=== PATIENT | female | born 1950 | race Caucasian/White ===

== ENCOUNTER → 2021-03-06 14:28 | Outpatient (BNVA) | payer MEDICARE, SELFPAY | PROVIDERS: PCP Internal Medicine; Visit Provider Hospitalist | DX: R06.00 Dyspnea, unspecified (principal); D86.9 Sarcoidosis, unspecified; R91.8 Other nonspecific abnormal finding of lung field; R59.1 Generalized enlarged lymph nodes; J44.9 Chronic obstructive pulmonary disease, unspecified; Z87.891 Personal history of nicotine dependence; Z88.1 Allergy status to other antibiotic agents; Z88.2 Allergy status to sulfonamides | CPT/HCPCS: 99202 ==

== ENCOUNTER 2021-03-19 13:01 | Outpatient (REF) | payer MEDICARE, SELFPAY ==
--- NOTE | ~2021-03-19 | CT_ITS ---
EXAMINATION: CT CHEST WITHOUT CONTRAST CLINICAL INFORMATION: Pulmonary nodule. COMPARISON: None TECHNIQUE: Multidetector volumetric CT imaging of the chest was done. Axial MIP volume rendering provided. Sagittal and coronal reformatted images were obtained. This CT examination was performed using dose optimization techniques as appropriate, variously including the following: *Automated exposure control *Adjustment of mA and/or kV according to patient size (this includes techniques or standardized protocols for targeted exams where dose is matched to indication/reason for exam; i.e. extremities or head) *Use of iterative reconstruction technique DLP: 191 mGy-cm FINDINGS: LUNGS: There is a 2 mm peripheral right upper lobe calcified nodule axial image 96 series 6. There are small clustered noncalcified peribronchial right upper lobe nodules suggestive of tree-in-bud appearance, the largest nodule measuring 2-3 mm, for example axial image 172 series 6. There are increased peripheral interstitial markings with increased reticulation. This has upper lobe predominance. There is question of increased faint peribronchial or centrilobular increased attenuation seen throughout the lungs, but greatest in the upper lobes. No evidence of honeycombing or cystic change is seen. No evidence of emphysema or bronchiectasis is seen. No endobronchial or endotracheal lesion is seen. MEDIASTINUM: There are small mediastinal lymph nodes. No enlarged lymph nodes are seen. The heart does not appear enlarged. There is mild coronary artery calcification. There is no pericardial effusion. PLEURA: There is no pleural effusion. No pleural mass or thickening. AXILLA: No lymphadenopathy. UPPER ABDOMEN: Unremarkable. OSSEOUS STRUCTURES: Unremarkable. CT/CT chest wo con IMPRESSION: Mild upper lobe interstitial disease with increased peribronchial or centrilobular attenuation. Differential would include hypersensitivity pneumonitis, inhalational pneumonitis, nonspecific interstitial pneumonitis, and respiratory bronchiolitis if the patient is a smoker. Small calcified right upper lobe nodule. Clustered small right upper lobe nodules suggestive of a tree-in-bud appearance or airways disease. Coronary artery calcification.
== END 2021-03-19 13:02 | disposition home or self-care (01) ==
LOC: HO.CT 13:01
PROVIDERS: PCP Internal Medicine; Visit Provider Hospitalist
DX: R91.8 Other nonspecific abnormal finding of lung field (principal); R59.1 Generalized enlarged lymph nodes; D86.9 Sarcoidosis, unspecified
CPT/HCPCS: 71250

== ENCOUNTER 2021-03-23 12:41 | Outpatient (REF) | payer MEDICARE, SELFPAY ==
--- NOTE | 2021-03-23 15:24 | PFT_ITS ---
FLOWS: FEV1 61% of predicted at 1.24 L. FVC 60% of predicted at 1.64 L. FEV1 to FVC ratio of 0.75. No bronchodilator response except in [id number] airways. LUNG VOLUMES: Total lung capacity 74% of predicted at 3.55 L. Residual volume 92% of predicted at 1.97 L. Slow vital capacity 60% of predicted at 1.59 L. Expiratory reserve volume 11% of predicted at 0.07 L. Diffusion capacity is moderately decreased, diffusion capacity just being mildly decreased after correction for alveolar ventilation. IMPRESSION: Moderate restrictive ventilatory defect with no bronchodilator response except in [id number] airways. Decreased expiratory reserve volume suggests extrathoracic restriction, likely secondary to abdominal obesity. Decreased diffusion capacity suggests emphysema. Jan Barajas MD AP/MODL / [id number]
== END 2021-03-23 12:42 | disposition home or self-care (01) ==
LOC: HO.RESP 12:41
PROVIDERS: PCP Internal Medicine; Visit Provider Hospitalist
DX: R91.8 Other nonspecific abnormal finding of lung field (principal); D86.9 Sarcoidosis, unspecified; R59.1 Generalized enlarged lymph nodes
CPT/HCPCS: 94060; 94727; 94729

== ENCOUNTER → 2021-04-13 13:07 | Outpatient (BNVA) | payer MEDICARE, SELFPAY | PROVIDERS: PCP Internal Medicine; Visit Provider Hospitalist | DX: R91.8 Other nonspecific abnormal finding of lung field (principal); J44.9 Chronic obstructive pulmonary disease, unspecified; R06.00 Dyspnea, unspecified; D86.9 Sarcoidosis, unspecified | CPT/HCPCS: 99212 ==

== ENCOUNTER 2021-04-13 13:47 | Outpatient (REF) | payer MEDICARE, SELFPAY ==
[2021-04-13 14:03] LABS: MANUAL DIFF FLAG NO
[2021-04-13 14:20] LABS: Basophils Absolute Auto 0.1 X10*3/uL (0.0-0.2); Basophils Percent Auto 0.7 % (0-2); Eosinophils Absolute Auto 0.4 X10*3/uL (0.0-0.4); Eosinophils Percent Auto 4.5 % (0-4); Hemoglobin 11.8 g/dl (12.0-16.0); Imm Gran Abs Auto 0.05 X10*3/uL (0.00-0.03); Imm Gran Pct Auto 0.6 % (0.0-0.4); Lymphocytes Absolute Auto 1.7 X10*3/uL (1.2-4.9); Lymphocytes Percent Auto 21.1 % (20-40); Mean Corpuscular HGB Conc 31.9 g/dl (31.0-35.0); Mean Corpuscular Hemoglobin 28.1 pg (27.0-33.0); Mean Corpuscular Volume 88.1 fL (80-98); Monocytes Absolute Auto 0.8 X10*3/uL (0.1-1.2); Monocytes Percent Auto 9.4 % (2-11); Neutrophils Absolute Auto 5.2 X10*3/uL (2.0-8.3); Neutrophils Percent Auto 63.7 % (45-73); Platelet Count 318 X10*3/uL (160-400); Red Cell Distribution Width 13.2 % (11.0-16.0); White Blood Count 8.2 X10*3/uL (4.8-10.8)
[2021-04-13 14:59] LABS: Erythrocyte Sedimentation Rate 45 MM/HR (0-20)
[2021-04-14 23:01] LABS: Immunoglobulin E 46 kU/L (<OR=114)
[2021-04-15 04:52] LABS: Alpha 1 Anti-trypsin 169 mg/dL (83-199)
[2021-04-15 12:07] LABS: Anti Nuclear Antibody Screen NEGATIVE (NEGATIVE)
[2021-04-18 15:32] LABS: Asperg fumigatus Precip Abs NEGATIVE (NEGATIVE); Micropoly faeni Abs NEGATIVE (NEGATIVE); Pigeon serum Abs NEGATIVE (NEGATIVE); Saccharo pora viridis Abs NEGATIVE (NEGATIVE); Thermo candidus Abs NEGATIVE (NEGATIVE); Thermoa vulgaris #1 NEGATIVE (NEGATIVE)
[2021-05-07 13:32] LABS: Angiotensin Converting Enzyme 6 U/L (9-67)
== END 2021-04-13 13:48 | disposition home or self-care (01) ==
LOC: HO.LAB 13:47
PROVIDERS: Visit Provider Hospitalist
DX: D86.9 Sarcoidosis, unspecified (principal); R91.8 Other nonspecific abnormal finding of lung field; J44.9 Chronic obstructive pulmonary disease, unspecified; R59.1 Generalized enlarged lymph nodes
CPT/HCPCS: 36415; 82103; 82164; 82785; 85025; 85652; 86038; 86039; 86331; 86606; 86609

== ENCOUNTER → 2021-08-11 13:05 | Outpatient (BNVA) | payer MEDICARE, SELFPAY | PROVIDERS: PCP Internal Medicine; Visit Provider Hospitalist | DX: J43.2 Centrilobular emphysema (principal); D86.9 Sarcoidosis, unspecified; R91.8 Other nonspecific abnormal finding of lung field | CPT/HCPCS: 99212 ==

== ENCOUNTER → 2021-11-10 09:27 | Outpatient (BNVA) | payer MEDICARE, SELFPAY | PROVIDERS: PCP Internal Medicine; Visit Provider Hospitalist | DX: J43.2 Centrilobular emphysema (principal); D86.9 Sarcoidosis, unspecified; R91.8 Other nonspecific abnormal finding of lung field; Z79.899 Other long term (current) drug therapy; Z99.81 Dependence on supplemental oxygen | CPT/HCPCS: 99212 ==

== ENCOUNTER → 2022-05-12 10:09 | Outpatient (BNVA) | payer MEDICARE, SELFPAY | PROVIDERS: PCP Internal Medicine; Visit Provider Hospitalist | DX: J43.2 Centrilobular emphysema (principal); R91.8 Other nonspecific abnormal finding of lung field; D86.9 Sarcoidosis, unspecified; R59.1 Generalized enlarged lymph nodes; J98.4 Other disorders of lung; J84.9 Interstitial pulmonary disease, unspecified; G47.33 Obstructive sleep apnea (adult) (pediatric); R06.00 Dyspnea, unspecified; Z99.81 Dependence on supplemental oxygen; Z99.89 Dependence on other enabling machines and devices | CPT/HCPCS: 99212 ==

== ENCOUNTER 2022-06-14 12:49 | Outpatient (REF) | payer MEDICARE, SELFPAY ==
--- NOTE | 2022-06-14 14:11 | PFT_ITS ---
Forced vital capacity 59%, FEV1 63%. FEV1/FVC ratio is 80. [id number] 68% and MVV is 76%. Post bronchodilator therapy there is no change. Total lung capacity 67% and residual volume 69%. Diffusion capacity 54%. CONCLUSION: Restrictive pulmonary disorder, moderately severe. No obstructive airway disorder. No response to bronchodilator therapy. Clinical correlation recommended. MD FLAQUITA Duffy/MODL / [id number]
== END 2022-06-14 12:50 | disposition home or self-care (01) ==
LOC: HO.RESP 12:49
PROVIDERS: Visit Provider Hospitalist
DX: G47.33 Obstructive sleep apnea (adult) (pediatric) (principal); D86.9 Sarcoidosis, unspecified; J44.9 Chronic obstructive pulmonary disease, unspecified
CPT/HCPCS: 94060; 94727; 94729; 95806

== ENCOUNTER 2022-07-01 13:08 | Outpatient (REF) | payer MEDICARE, SELFPAY ==
--- NOTE | ~2022-07-01 | US_ITS ---
EXAMINATION: US VENOUS ULTRASOUND WITH DOPPLER LOWER EXTREMITY, LEFT CLINICAL INFORMATION: Left leg pain COMPARISON: None TECHNIQUE: Ultrasound of the deep veins is performed from the hip to the calf with compression sonography and color and pulse Doppler assessment. Spectral analysis with color-flow imaging is performed. FINDINGS: There is normal venous compression and respiratory variation and augmented flow. The visualized common femoral vein, superficial femoral vein, profunda femoral vein, popliteal vein, and the trifurcation region shows no evidence of deep venous thrombosis. There is no significant popliteal fossa cyst. If the patient's symptoms persist, followup ultrasound in 5 days 7 days might be of value to exclude proximal propagation from a non-visualized calf vein. US/US venous duplex LE LT IMPRESSION: No DVT demonstrated in the left lower extremity.
[2022-07-01 16:25] LABS: MANUAL DIFF FLAG NO
[2022-07-01 16:29] LABS: Basophils Absolute Auto 0.1 X10*3/uL (0.0-0.2); Basophils Percent Auto 0.9 % (0-2); Eosinophils Absolute Auto 0.5 X10*3/uL (0.0-0.4); Eosinophils Percent Auto 4.3 % (0-4); Hematocrit 37.6 % (37.0-47.0); Hemoglobin 12.2 g/dl (12.0-16.0); Imm Gran Abs Auto 0.08 X10*3/uL (0.00-0.03); Imm Gran Pct Auto 0.7 % (0.0-0.4); Lymphocytes Absolute Auto 2.1 X10*3/uL (1.2-4.9); Lymphocytes Percent Auto 19.4 % (20-40); Mean Corpuscular HGB Conc 32.4 g/dl (31.0-35.0); Mean Corpuscular Hemoglobin 28.1 pg (27.0-33.0); Mean Corpuscular Volume 86.6 fL (80.0-98.0); Mean Platelet Volume 10.4 fL (9.4-12.3); Monocytes Absolute Auto 0.9 X10*3/uL (0.1-1.2); Monocytes Percent Auto 8.3 % (2-11); Neutrophils Absolute Auto 7.3 x10*3/uL (2.0-8.3); Neutrophils Percent Auto 66.4 % (45-73); Platelet Count 337 X10*3/uL (160-400); Red Blood Count 4.34 X10*6/uL (4.20-5.50); Red Cell Distribution Width 13.7 % (11.0-16.0)
[2022-07-01 16:35] LABS: Prothrombin Time 11.1 SEC (10.0-13.1)
[2022-07-01 16:53] LABS: Alanine Aminotransferase 26 U/L (0-31); Albumin Level 4.3 g/dL (3.5-5.0); Alkaline Phosphatase 133 U/L (39-117); Anion Gap 16 (12-20); Aspartate Amino Transferase 16 U/L (5-31); Bilirubin Total 0.3 mg/dL (0.0-1.0); Blood Urea Nitrogen 30 mg/dL (9-16); Calcium 9.5 mg/dL (8.4-10.2); Carbon Dioxide 25 mmol/L (22-29); Chloride 105 mmol/L (96-108); Estimated Glomerular Filt Rate 44; Glucose Random 139 mg/dL (60-115); Potassium 4.8 mmol/L (3.3-5.1); Sodium 141 mmol/L (135-145); Total Protein 6.9 g/dL (6.5-8.0)
== END 2022-07-01 13:09 | disposition home or self-care (01) ==
LOC: HO.HMGCX 13:08
PROVIDERS: PCP Internal Medicine; Visit Provider Physician Assistant
DX: M79.605 Pain in left leg (principal)
CPT/HCPCS: 36415; 80053; 85025; 85610; 93971

== ENCOUNTER → 2022-07-13 10:25 | Outpatient (BNVA) | payer MEDICARE, SELFPAY | PROVIDERS: PCP Internal Medicine; Visit Provider Hospitalist | DX: J84.9 Interstitial pulmonary disease, unspecified (principal); J43.2 Centrilobular emphysema; R91.8 Other nonspecific abnormal finding of lung field; D86.9 Sarcoidosis, unspecified; R09.02 Hypoxemia; R59.1 Generalized enlarged lymph nodes; Z99.81 Dependence on supplemental oxygen | CPT/HCPCS: 99212 ==

== ENCOUNTER 2022-07-19 13:08 | Outpatient (REF) | payer MEDICARE, SELFPAY ==
--- NOTE | ~2022-07-19 | CT_ITS ---
EXAMINATION: CT CHEST WITHOUT CONTRAST CLINICAL INFORMATION: Interstitial pulmonary disease. COMPARISON: CT chest 03/19/2021. TECHNIQUE: Multidetector volumetric CT imaging of the chest was done. Axial MIP volume rendering provided. Sagittal and coronal reformatted images were obtained. This CT examination was performed using dose optimization techniques as appropriate, variously including the following: *Automated exposure control *Adjustment of mA and/or kV according to patient size (this includes techniques or standardized protocols for targeted exams where dose is matched to indication/reason for exam; i.e. extremities or head) *Use of iterative reconstruction technique DLP: 225 mGy-cm. FINDINGS: HELPER ELECTRICAL: Well-inflated lungs. LUNGS: The lungs are hyperinflated with central lobular emphysema. There are reticular fine and coarse interstitial thickening in both upper lobes with anterior segment chronic atelectasis or scarring. There are subcentimeter nodules in the right lower lobe and right upper lobe. Tree-in-bud appearance seen in the right lower lobe on the previous exam is not visualized on this exam. No new large nodules or mass seen. No cystic changes or honeycombing seen. MEDIASTINUM: The thyroid lobes are symmetric and normal. The central trachea and bronchi are widely patent. The heart size and great vessels are normal caliber. No pericardial effusion seen. No abnormal-sized mediastinal or hilar lymph nodes seen. CORONARY ARTERY CALCIFICATION: There is mild coronary artery calcifications present. PLEURA: No pleural effusion, thickening, calcification or pneumothorax seen. AXILLA: Small shotty lymph nodes are seen in bilateral axilla largest nodule measures 7 mm left axilla image 12/7. . UPPER ABDOMEN: Visualized liver, spleen, pancreas and bilateral adrenal glands are unremarkable. No radiopaque gallstone seen. OSSEOUS STRUCTURES: No aggressive lytic or sclerotic process seen. CT/CT chest wo IV con IMPRESSION: 1. Centrilobular emphysema with chronic interstitial changes in both upper lobes and chronic atelectasis in anterior segment right upper lobe. 2. Tree-in-bud appearance seen in the right lower lobe on the previous exam is not visualized on this exam. 3. There are subcentimeter nodules in the right upper lobe and right lower lobe which are stable. 4. No abnormal mediastinal or axillary lymph nodes seen. Fleischner guidelines were followed.
== END 2022-07-19 13:09 | disposition home or self-care (01) ==
LOC: HO.CT 13:08
PROVIDERS: Visit Provider Hospitalist
DX: J84.9 Interstitial pulmonary disease, unspecified (principal); R91.8 Other nonspecific abnormal finding of lung field
CPT/HCPCS: 71250

== ENCOUNTER → 2022-10-12 09:59 | Outpatient (BNVA) | payer MEDICARE, SELFPAY | PROVIDERS: PCP Internal Medicine; Visit Provider Hospitalist | DX: R91.8 Other nonspecific abnormal finding of lung field (principal); D86.9 Sarcoidosis, unspecified; J84.9 Interstitial pulmonary disease, unspecified; J43.2 Centrilobular emphysema; R06.00 Dyspnea, unspecified; J98.4 Other disorders of lung; G47.33 Obstructive sleep apnea (adult) (pediatric) | CPT/HCPCS: 99212 ==

== ENCOUNTER → 2022-10-29 09:02 | Outpatient (BNVA) | payer MEDICARE, SELFPAY | PROVIDERS: PCP Internal Medicine; Visit Provider Physician Assistant | DX: M54.10 Radiculopathy, site unspecified (principal) | CPT/HCPCS: 99202 ==

== ENCOUNTER → 2022-11-25 13:57 | Outpatient (BNVA) | payer MEDICARE, SELFPAY | PROVIDERS: PCP Internal Medicine; Visit Provider Nurse Practitioner Family | DX: M47.816 Spondylosis without myelopathy or radiculopathy, lumbar region (principal); M54.10 Radiculopathy, site unspecified; I73.9 Peripheral vascular disease, unspecified | CPT/HCPCS: 99202 ==

== ENCOUNTER 2022-11-29 14:54 | Outpatient (REF) | payer MEDICARE, SELFPAY ==
--- NOTE | ~2022-11-29 | XR_ITS ---
EXAMINATION: XR LUMBOSACRAL SPINE WITH OBLIQUES CLINICAL INFORMATION: Radiculopathy. COMPARISON: None available. TECHNIQUE: AP, both oblique, and lateral views of the lumbar spine. Lateral view of the lumbosacral junction. FINDINGS: No acute compression deformity. Grade 1 retrolisthesis of L1 on L2 with unchanged alignment on extension and flexion views. Mild intervertebral disc height loss at L4-L5 and L5-S1. Moderate facet arthropathy with neural foraminal encroachment from L4 through S1. 2 scattered atherosclerotic disease. Otherwise, no significant soft tissue abnormality. XR/XR lumbar spine 6V w bending IMPRESSION: 1. No acute compression deformity. 2. Grade 1 retrolisthesis of L1 on L2 with unchanged alignment on flexion and extension views. 3. Moderate lower lumbar spondylosis with some degree of neural foraminal encroachment, consider further evaluation with an MRI of the lumbar spine as clinically warranted.
[2022-11-29 14:54] VITALS: BMI 33.8
== END 2022-11-29 14:55 | disposition home or self-care (01) ==
LOC: HO.XRAY 14:54
PROVIDERS: Visit Provider Nurse Practitioner Family
DX: M47.26 Other spondylosis with radiculopathy, lumbar region (principal)
CPT/HCPCS: 72114

== ENCOUNTER 2023-02-11 09:38 | Outpatient (REF) | payer MEDICARE, SELFPAY ==
--- NOTE | ~2023-02-11 | MR_ITS ---
EXAMINATION: MR LUMBAR SPINE WITHOUT CONTRAST CLINICAL INFORMATION: Radiculopathy. COMPARISON: Lumbar spine radiographs 11/29/2022. TECHNIQUE: MRI of the lumbar spine was obtained using routine sequences without contrast. FINDINGS: There is a slight grade 1 anterolisthesis of L4 on L5. Alignment is otherwise normal in the sagittal dimension. Vertebral heights are preserved. No acute bone marrow signal changes. There is disc desiccation at multiple levels without substantial loss of intervertebral disc height. The tip of the conus medullaris is located at L1-L2. No mass effect on the conus. Visualized distal cord signal intensity is normal. At L1-L2 there is a shallow left central protrusion. No canal stenosis. No mass effect on the traversing or foraminal nerve roots. At L2-L3 the annular contour is normal. No canal or neuroforaminal compromise. At L3-L4 the annular contour is normal. No canal or neuroforaminal compromise. At L4-L5 there is a central protrusion superimposed upon a pseudodisc bulge. Advanced bilateral facet degenerative change. Mild canal stenosis. No mass effect on the traversing or foraminal nerve roots. At L5-S1 the annular contour is normal. No canal stenosis. No mass effect on the traversing or foraminal nerve roots. Limited visualization of the retroperitoneal anatomy reveals a few well marginated benign-appearing cystic lesions within the left kidney. Psoas and paraspinal muscle groups are symmetric. MR/MR lumbar spine wo con IMPRESSION: There is disc degeneration at multiple levels within the lumbar spine. Slight grade 1 anterolisthesis of L4 on L5 related to advanced facet degenerative changes at this level. Mild canal stenosis at L4-L5. Otherwise no canal compromise. No mass effect on the traversing or foraminal nerve roots.
== END 2023-02-11 09:39 | disposition home or self-care (01) ==
LOC: HO.MRI 09:38
PROVIDERS: PCP Internal Medicine; Visit Provider Nurse Practitioner Family
DX: M54.10 Radiculopathy, site unspecified (principal); M47.816 Spondylosis without myelopathy or radiculopathy, lumbar region
CPT/HCPCS: 72148

== ENCOUNTER 2023-02-16 09:26 | Outpatient (AMB) | payer MEDICARE, SELFPAY ==
--- NOTE | 2023-02-16 09:29 | MHC.OFFWIV ---
Intake Vital Signs 02/16/23 09:31 Height 5 ft 2 in Weight 84.368 kg BMI 34.0 BP 130/72 Blood Pressure Location Lt brachial Position Sitting Pulse 94 Pulse Source Pulse Oximeter Temp 96.9 F Temp Source Temporal Artery Scan Pulse Oximetry (%) 96 Oxygen Delivery Method Room Air Intake Visit Reasons: EP pain in right shoulder Intake Note: Pt is here c/o right shoulder pain. Pt states no falls or injuries. Patient Tobacco Use Status: Former Tobacco user Allergies amoxicillin [AMOXICILLIN] Allergy (Severe, Verified 02/16/23 09:30) SHAKINESS Sulfa (Sulfonamide Antibiotics) [SULFA (SULFONAMIDE ANTIBIOTICS)] Allergy (Severe, Verified 02/16/23 09:30) SHAKINESS erythromycin base [ERYTHROMYCIN BASE] Allergy (Mild, Verified 02/16/23 09:30) HEADACHE Do you need a note to return to daycare/school/sports/work: No HPI HPI Comments History of Present Illness Details [id number] 72-year-old female presents with atraumatic right shoulder pain for the past 3-4 days, patient reports a sore/uncomfortable sensation to right shoulder, she reports that started after awaking 1 day, unsure if she slept on it the wrong why. At times has intermittent numbness and tingling to right upper extremity. No previous trauma to right shoulder she has with it. Patient denies fevers, chills, chest pain, shortness of breath, nausea, vomiting, abdominal pain, headache, vision changes, dizziness, weakness. NIH stroke scale 0 Physical exam benign Likely shoulder strain or sprain versus inflammatory arthritis. Unlikely fractures, dislocation, threat to [place], neurovascular compromise. No signs of ACS. Plan EKG, discharge with steroids, patient diabetic I did explain to her that it can increase her sugars, so she should monitor him closely. Educated patient on diagnosis and treatment plan, answered all question, patient verbalizes understanding. At this time patient will be discharged home, advised to return with new or worsening symptoms. Educated on worrisome signs and symptoms and when to return. At this time I feel comfortable discharge home. [facility] Medical History Chronic restrictive lung disease COPD (chronic obstructive pulmonary disease) ILD (interstitial lung disease) Lymphadenopathy JOHANN (obstructive sleep apnea) Pulmonary nodules Pulmonary nodules Sarcoidosis Social History Household Members: Spouse Patient Tobacco Use Status: Former Tobacco user Tobacco use type: Cigarette Years Smoked: 30yrs Second Hand Smoke Exposure: No Review of Systems Const Details: Constitutional : No Weight loss, No Fever, No Chills, No Fatigue, No Malaise ENT/Mouth : No sore throat, No Rhinorrhea Eyes: No Eye Pain, No Swelling, No Redness Cardiovascular : No Chest Pain, No SOB, No Dyspnea on Exertion, No Orthopnea, No Edema, No Palpitations Respiratory : No Cough, No Sputum, No Wheezing Gastrointestinal : No Nausea, No Vomiting, No Diarrhea, No Constipation, No abdominal Pain, No Hematochezia, No Melena Genitourinary : No Dysuria, No Urinary Frequency, No Hematuria, Musculoskeletal : + joint pain, No Myalgias, No Joint Swelling Skin : No Skin Lesions, No rash Neuro : No Weakness, No Numbness, No Dizziness, No Headache Psych : No Anxiety/Panic, No Depression All other systems reviewed and are negative All systems reviewed & are unremarkable except as noted in HPI and below Physical Exam Vital Signs: Last Vital Signs Temp 96.9 F 02/16/23 09:31 Pulse 94 02/16/23 09:31 BP 130/72 02/16/23 09:31 Pulse Ox 96 02/16/23 09:31 Oxygen Delivery Method Room Air 02/16/23 09:31 BMI result Body Mass Index 34.0 vss Appearance: Alert.? Oriented X3.? No acute distress.? Head: Normocephalic, atraumatic, no step-offs or deformities Eyes: Pupils equal, round and reactive to light.? ENT: Pharynx normal.? Neck: Normal inspection.? Neck supple.? CVS: Normal heart rate and rhythm.? Pulses normal.? Respiratory: No respiratory distress.? Breath sounds normal.? Abdomen: Soft and nontender.? Skin: Skin warm and dry.? Normal skin color.? Normal skin turgor.? Extremities: No lower extremity edema.? No calf ttp. 5/5 strength to bilateral upper and lower extremities 2+ radial pulses equal bilateral, no wrist drop. Normal sensation distally. Capillary refill less than 2 seconds bilateral upper extremity digits. Full range of motion, painless to bilateral shoulders. No step-offs or deformities. Neuro: Oriented X 3.? No motor deficit.? No sensory deficit. CN 2-12 intact normal [id number]-vfkn, normal hand audit manager bilaterally. Ambulatory with steady gait normal coordination Office Procedures EKG Details: Ventricular rate of 74, QRS normal, QT/QTC normal. EKG with sinus rhythm with marked sinus arrhythmia, right axis deviation, no ST elevations or inversions concerning for acute ischemia 89113-[id number], Complete Assessment & Plan Assessment & Plan (1) Right shoulder pain: Code(s): M25.511 - Pain in right shoulder Plan Take your medications as prescribed. If you were prescribed antibiotics today, it is important that you take your medication to their entirety, do not skip any doses, do not finish them early. Follow-up with your primary care provider this week. Return to the emergency department with new or worsening symptoms. Such as fevers, chills, chest pain, shortness of breath, nausea, vomiting, dizziness, headache, vision changes, lethargy In case of emergency call 911 Orders: Orders AMB EKG-In Office Today M25.511 - Pain in right shoulder Medications: New prednisone 40 mg (2 x 20 mg) PO DAILY 5 days 10 tabs 0RF lidocaine 4% (AsperFlex (lidocaine)) 1 patch topical DAILY PRN 15 ea 0RF pain acetaminophen 650 mg (2 x 325 mg) PO Q6H PRN 30 caps 0RF fever or pain Coding Level of Care Code Est Pt Level 3 (32358) Diagnoses Right shoulder pain M25.511 CPT Codes EKG - CPT: 93467-[id number], Complete ([id number])
[2023-02-16 09:31] VITALS: BP 130/72; PULSE 94; TEMP 36.1; O2SAT 96; BMI 34.0
== END 2023-02-16 10:11 | disposition home or self-care (01) ==
PROVIDERS: PCP Internal Medicine; Visit Provider Physician Assistant
DX: M25.511 Pain in right shoulder (principal)
CPT/HCPCS: 93000; 99213

== ENCOUNTER 2024-04-06 19:22 | Emergency (ER) | payer MEDICARE, SELFPAY ==
--- NOTE | ~2024-04-06 | XR_ITS ---
EXAMINATION: XR CHEST CLINICAL INFORMATION: SOB COMPARISON: None available. TECHNIQUE: 2 views of the chest were obtained. FINDINGS: The cardiac silhouette is normal. There is mild diffuse bronchial wall thickening. There are no areas of consolidation. There are no pleural effusions or pneumothoraces. The bones and soft tissues are unremarkable for the patient's age. XR/XR chest 2V IMPRESSION: Bronchial wall thickening may be infectious and/or inflammatory in etiology. Electronically signed by: Pau Real MD 04/06/2024 08:37 PM EDT RP
--- NOTE | 2024-04-06 19:30 | ED_ITS ---
HPI - SOB/Dyspnea General Chief Complaint: Upper Respiratory Symptoms Stated Complaint: SOB, sent from Urgent care Related Data Home Medications ?Medication ?Instructions ?Recorded ?Confirmed hydrochlorothiazide 25 mg tablet 25 mg PO DAILY 03/06/21 insulin glargine 100 unit/mL (3 32 unit subcut BEDTIME 03/06/21 mL) subcutaneous pen (Lantus Solostar U-100 Insulin) levothyroxine 75 mcg tablet 75 mcg PO DAILY 03/06/21 lisinopril 40 mg tablet 40 mg PO DAILY 03/06/21 metformin 500 mg tablet,extended 500 mg PO BID 03/06/21 release 24 hr simvastatin 40 mg tablet 40 mg PO BEDTIME 03/06/21 amlodipine 10 mg tablet 10 mg PO DAILY 05/12/22 dulaglutide 3 mg/0.5 mL mg subcut 05/12/22 subcutaneous pen injector (Trulicity) Oxygen Home Use 07/13/22 glipizide 5 mg tablet 5 mg PO DAILY 10/12/22 Previous Rx's ?Medication ?Instructions ?Recorded albuterol sulfate 90 mcg/actuation 2 inh inhalation Q6H PRN shortness 08/27/22 aerosol inhaler of breath or wheezing 30 days #18 grams fluticasone fur. 100 mcg-umeclid 1 ea inhalation DAILY #60 ea 08/27/22 62.5 mcg-vilant 25 mcg inhalat.powder (Trelegy Ellipta) acetaminophen 325 mg capsule 650 mg (2 x 325 mg) PO Q6H PRN 02/16/23 fever or pain #30 caps lidocaine 4 % topical patch 1 patch topical DAILY PRN pain #15 02/16/23 (AsperFlex (lidocaine)) ea prednisone 20 mg tablet 40 mg (2 x 20 mg) PO DAILY 5 days 02/16/23 #10 tabs Allergies Allergy/AdvReac Type Severity Reaction Status Date / Time amoxicillin [AMOXICILLIN] Allergy Severe SHAKINESS Verified 04/06/24 19:34 Sulfa (Sulfonamide Allergy Severe SHAKINESS Verified 04/06/24 19:34 Antibiotics) [SULFA (SULFONAMIDE ANTIBIOTICS)] erythromycin base Allergy Mild HEADACHE Verified 04/06/24 19:34 [ERYTHROMYCIN BASE] [facility] Past Medical History Medical History Chronic restrictive lung disease COPD (chronic obstructive pulmonary disease) ILD (interstitial lung disease) Lymphadenopathy JOHANN (obstructive sleep apnea) Pulmonary nodules Pulmonary nodules Sarcoidosis Social History Social History Household Members: Spouse Patient Tobacco Use Status: Former Tobacco user Tobacco use type: Cigarette Years Smoked: 30yrs Second Hand Smoke Exposure: No Advance Directives: No Advance Directives Information Provided: No Do you have a plan to hurt others: No Plan Physical Exam 2 Vital Signs: Vital Signs: Last Vital Signs Temp 97.1 F 04/06/24 19:31 Pulse 80 04/06/24 19:31 Resp 18 04/06/24 19:31 BP 152/96 H 04/06/24 19:31 Pulse Ox 92 04/06/24 19:31 O2 Del Method Room Air 04/06/24 19:31 BMI result Body Mass Index 33.5 Course Course Course Narrative: This is a Rapid Medical Exam performed in triage by Radha Altman PA-C. Full HPI, ROS and PE to be performed by primary ED provider. 73yo F w/PMHx JOHANN, COPD, sarcoidosis, presenting to the ED c/o sent in from urgent care for hypoxia, 88% on ambulation. Patient reports SOB, worse on exertion & Flu 2wks ago. Per urgent care provider was satting 93% on room air, desatted to 88% on walking. Denies CP, fever PE: satting 92% on RA, talking in complete sentences, Lungs CTA, mild LE edema Plan: EKG, labs, CXR, viral testing Medical Decision Making Lab Data 04/06/24 19:42 04/06/24 19:42 Labs: Lab Results 04/06/24 Range/Units 19:42 WBC 10.4 (4.8-10.8) X10*3/uL RBC 4.00 L (4.20-5.50) X10*6/uL Hgb 11.4 L (12.0-16.0) g/dl Hct 34.8 L (37.0-47.0) % MCV 87.0 (80.0-98.0) fL MCH 28.5 (27.0-33.0) pg MCHC 32.8 (31.0-35.0) g/dl RDW 13.7 (11.0-16.0) % Plt Count 313 (160-400) X10*3/uL MPV 9.2 L (9.4-12.3) fL Immature Gran % (Auto) 0.8 H (0.0-0.4) % Neut % (Auto) 67.7 (45-73) % Lymph % (Auto) 18.7 L (20-40) % [place] % (Auto) 8.6 (2-11) % Eos % (Auto) 3.5 (0-4) % Baso % (Auto) 0.7 (0-2) % Lymph # (Auto) 1.9 (1.2-4.9) X10*3/uL [place] # (Auto) 0.9 (0.1-1.2) X10*3/uL Eos # (Auto) 0.4 (0.0-0.4) X10*3/uL Baso # (Auto) 0.1 (0.0-0.2) X10*3/uL Abs Immat Gran (auto) 0.08 H (0.00-0.03) X10*3/uL Absolute Neuts (auto) 7.0 (2.0-8.3) x10*3/uL Absolute Nucleated RBC 0.000 (0.0-0.012) X10*3/uL Nucleated RBC % (auto) 0.0 (0.0-0.2) /100WBC PT 10.5 L (10.9-12.4) SEC INR 0.9 (0.9-1.1) Sodium 143 (135-145) mmol/L Potassium 4.1 (3.3-5.1) mmol/L Chloride 109 H (96-108) mmol/L Carbon Dioxide 24 (22-29) mmol/L Anion Gap 14 (12-20) BUN 30 H (9-16) mg/dL Creatinine 1.22 (0.5-1.4) mg/dL Estim Creat Clear Calc 40.4 Estimated GFR 43 Random Glucose 169 H (60-115) mg/dL Calcium 9.4 (8.4-10.2) mg/dL Magnesium 2.1 (1.6-2.6) mg/dL Total Bilirubin 0.3 (0.0-1.0) mg/dL Direct Bilirubin 0.1 (0.0-0.5) mg/dL AST 11 (5-31) U/L ALT 16 (0-31) U/L Alkaline Phosphatase 132 H (39-117) U/L Troponin I High Sens < 2.7 (<3.5-17.0) ng/L B-Natriuretic Peptide 18 (<100) pg/mL Total Protein 7.3 (6.5-8.0) g/dL Albumin 4.3 (3.5-5.0) g/dL Influenza Type A (PCR) NEGATIVE (Negative) Influenza Type B (PCR) NEGATIVE (Negative) RSV RNA Qual (PCR) NEGATIVE (Negative) SARS-CoV-2 RNA (RT-PCR) NEGATIVE (Negative) Discharge Plan Discharge Clinical Impression: Dyspnea Patient Disposition: Left W/O Completing Treatment Prescriptions: No Action Trelegy Ellipta 100-62.5-25 mcg blister with device 1 ea inhalation DAILY Qty: 60 11RF albuterol sulfate 90 mcg/actuation HFA aerosol inhaler 2 inh inhalation Q6H PRN (Reason: shortness of breath or wheezing) 30 Days Qty: 18 12RF prednisone 20 mg tablet 40 mg PO DAILY 5 Days Qty: 10 0RF lidocaine [AsperFlex (lidocaine)] 4 % adhesive patch,medicated 1 patch topical DAILY PRN (Reason: pain) Qty: 15 0RF acetaminophen 325 mg capsule 650 mg PO Q6H PRN (Reason: fever or pain) Qty: 30 0RF lisinopril 40 mg tablet 40 mg PO DAILY levothyroxine 75 mcg tablet 75 mcg PO DAILY Lantus Solostar U-100 Insulin 100 unit/mL (3 mL) insulin pen 32 unit subcut BEDTIME metformin 500 mg tablet extended release 24 hr 500 mg PO BID hydrochlorothiazide 25 mg tablet 25 mg PO DAILY simvastatin 40 mg tablet 40 mg PO BEDTIME glipizide 5 mg tablet 5 mg PO DAILY Trulicity 3 mg/0.5 mL pen injector subcut amlodipine 10 mg tablet 10 mg PO DAILY (DME) Oxygen Home Use Kit See Rx Instructions .ROUTE Rx Instructions: As directed Discharge Date/Time: 04/06/24 23:30
[2024-04-06 19:31] VITALS: BP 152/96; PULSE 80; RESP 18; TEMP 36.2; O2SAT 92; BMI 33.5
--- NOTE | 2024-04-06 19:32 | ECG_ITS ---
Test Reason : sob Blood Pressure : / mmHG Vent. Rate : 074 BPM Atrial Rate : 074 BPM P-R Int : 152 ms QRS Dur : 078 ms QT Int : 402 ms P-R-T Axes : 059 023 061 degrees QTc Int : 446 ms Normal sinus rhythm Normal ECG No previous ECGs available Referred By: Radha Altman Electronically Signed By:DAMASO HOLBROOK
[2024-04-06 19:49] LABS: MANUAL DIFF FLAG NO
[2024-04-06 19:50] LABS: Basophils Absolute Auto 0.1 X10*3/uL (0.0-0.2); Basophils Percent Auto 0.7 % (0-2); Eosinophils Absolute Auto 0.4 X10*3/uL (0.0-0.4); Eosinophils Percent Auto 3.5 % (0-4); Hematocrit 34.8 % (37.0-47.0); Hemoglobin 11.4 g/dl (12.0-16.0); Imm Gran Abs Auto 0.08 X10*3/uL (0.00-0.03); Imm Gran Pct Auto 0.8 % (0.0-0.4); Lymphocytes Absolute Auto 1.9 X10*3/uL (1.2-4.9); Lymphocytes Percent Auto 18.7 % (20-40); Mean Corpuscular HGB Conc 32.8 g/dl (31.0-35.0); Mean Corpuscular Hemoglobin 28.5 pg (27.0-33.0); Mean Platelet Volume 9.2 fL (9.4-12.3); Monocytes Absolute Auto 0.9 X10*3/uL (0.1-1.2); Monocytes Percent Auto 8.6 % (2-11); Neutrophils Percent Auto 67.7 % (45-73); Platelet Count 313 X10*3/uL (160-400); Red Cell Distribution Width 13.7 % (11.0-16.0); White Blood Count 10.4 X10*3/uL (4.8-10.8)
[2024-04-06 19:57] LABS: INTERNATIONAL NORM RATIO 0.9 (0.9-1.1); Prothrombin Time 10.5 SEC (10.9-12.4)
[2024-04-06 20:11] LABS: Alanine Aminotransferase 16 U/L (0-31); Albumin Level 4.3 g/dL (3.5-5.0); Alkaline Phosphatase 132 U/L (39-117); Anion Gap 14 (12-20); Aspartate Amino Transferase 11 U/L (5-31); Bilirubin Direct 0.1 mg/dL (0.0-0.5); Bilirubin Total 0.3 mg/dL (0.0-1.0); Blood Urea Nitrogen 30 mg/dL (9-16); Calcium 9.4 mg/dL (8.4-10.2); Carbon Dioxide 24 mmol/L (22-29); Chloride 109 mmol/L (96-108); Creatinine Clr Calc Pharmacy 40.4; Estimated Glomerular Filt Rate 43; Glucose Random 169 mg/dL (60-115); Magnesium 2.1 mg/dL (1.6-2.6); Potassium 4.1 mmol/L (3.3-5.1); Sodium 143 mmol/L (135-145); Total Protein 7.3 g/dL (6.5-8.0)
[2024-04-06 20:13] LABS: B Type Natriuretic Peptide 18 pg/mL (<100)
[2024-04-06 20:21] LABS: Troponin-I High Sensitivity < 2.7 ng/L (<3.5-17.0)
[2024-04-06 21:46] LABS: Influenza A PCR NEGATIVE (Negative); Influenza B PCR NEGATIVE (Negative); Resp Syncy Virus RNA Qual PCR NEGATIVE (Negative); SARS COV2 PCR INHOUSE NEGATIVE (Negative)
--- NOTE | 2024-04-06 23:01 | PC.NURSE ---
not in waiting room at this time.
== END 2024-04-06 23:30 | disposition left against medical advice (07) ==
PROVIDERS: Physician Assistant; Emergency Provider Emergency Medicine; PCP Internal Medicine
DX: R06.00 Dyspnea, unspecified (principal); R06.02 Shortness of breath; R60.0 Localized edema; J44.9 Chronic obstructive pulmonary disease, unspecified; Z03.818 Encounter for observation for suspected exposure to other biological agents ruled out; Z87.891 Personal history of nicotine dependence; Z79.899 Other long term (current) drug therapy
CPT/HCPCS: 0241U; 71046; 80048; 80076; 83735; 83880; 84484; 85025; 85610; 93005; 99281; 99283